=== PATIENT | male | born 1990 | race Asian ===

== ENCOUNTER 2017-08-27 07:08 | Day surgery (SDC) | payer OTHER ==
[~2017-08-27 07:08] MED LIST: CEFAZOLIN 2 GM/50 ML (PMX) 50 ML IVPB; SOD CHLORIDE 0.9% 1,000 ML IV
[2017-08-27] MEDS ORDERED: PROPOFOL 20 ML (08:33)
[2017-08-27] MEDS ORDERED: GLYCOPYRROLATE 0.4 MG INJ (08:33)
[2017-08-27] MEDS ORDERED: ROCURONIUM 50 MG INJ (08:33)
[2017-08-27] MEDS ORDERED: NEOSTIGMINE 3 MG/3 ML SYRINGE (08:33)
[2017-08-27] MEDS ORDERED: CEFAZOLIN 1 GM INJ (08:33)
[2017-08-27] MEDS ORDERED: DEXAMETHASONE 4 MG/ML 1 ML INJ (08:34)
[2017-08-27] MEDS ORDERED: MIDAZOLAM 1 MG/ML 2 ML INJ (08:34)
[2017-08-27] MEDS ORDERED: ONDANSETRON 4 MG INJ (08:34)
[2017-08-27] MEDS ORDERED: FENTAnyl 50 MCG/ML VIAL (08:34)
[2017-08-27] MEDS: BUPIVACAINE 0.25% (MPF) 30 ML INJ (08:50)
[2017-08-27] MEDS ORDERED: KETOROLAC 30 MG INJ (08:51)
[2017-08-27] MEDS: HYDROCODONE/APAP (5/325) TAB PO (09:21)
== END 2017-08-27 10:38 | disposition home or self-care (01) ==
LOC: SDS 07:08
DX: M67.431 Ganglion, right wrist (principal)
CPT/HCPCS: 25111; 88304